=== PATIENT | male | born 1970 | race Caucasian/White ===

== ENCOUNTER → 2018-07-08 09:06 | Outpatient (CLI) | payer OTHER, MEDICAID, SELFPAY | PROVIDERS: Family Provider Family Medicine; PCP Family Medicine; Visit Provider Registered Nurse | DX: B35.1 Tinea unguium (principal) | CPT/HCPCS: 87102 ==

== ENCOUNTER → 2018-08-07 09:44 | Outpatient (CLI) | payer OTHER, MEDICAID, SELFPAY ==
[2018-08-07 10:56] LABS: Alanine Aminotransferase 24 IU/L (21-72); Albumin 4.5 g/dL (3.5-5.0); Albumin Globulin Ratio 1.6 (1.0-2.8); Alkaline Phosphatase 68 U/L (38-126); Aspartate Aminotransferase 25 IU/L (17-59); Bilirubin Total 0.8 mg/dL (0.2-1.3); Blood Urea Nitrogen 15 mg/dL (9-20); Calcium 9.2 mg/dL (8.4-10.2); Carbon Dioxide 30 mmol/L (22-32); Chloride 101 mmol/L (98-107); Cholesterol 174 mg/dL (140-199); Estimated Glomerular Filt Rate > 60.0 mL/min (>60); Globulin 2.8 g/dL (1.7-4.1); Glucose 98 mg/dL (70-100); HDL Cholesterol 36 mg/dL (40-60); HEMOLYSIS 20 (0-50); LDL Cholesterol Calculated 114 mg/dL (<100); Potassium 4.3 mmol/L (3.4-5.1); Sodium 141 mmol/L (137-145); Total Protein 7.3 g/dL (6.3-8.2); Triglycerides 119 mg/dL (35-150)
[2018-08-07 11:27] LABS: Prostate Specific Antigen Scrn 0.951 ng/mL (0.1-4.0)
[2018-08-07 11:28] LABS: Thyroid Stimulating Hormone 1.77 uIU/mL (0.47-4.68)
[2018-08-07 12:13] LABS: Add Manual Diff / Slide Review NO; Basophils Absolute Auto 0 /uL (0-100); Basophils Percent Auto 0.5 % (0-2); Eosinophils Absolute Auto 100 /uL (0-450); Eosinophils Percent Auto 1.7 % (2-4); Hemoglobin 15.2 g/dL (13.5-17.5); Lymphocytes Absolute Auto 1700 /uL (1100-4500); Lymphocytes Percent Auto 28.5 % (25-40); Mean Corpuscular HGB Conc 34.5 % (30-36); Mean Corpuscular Hemoglobin 32.2 PG (26-34); Mean Corpuscular Volume 93.3 fL (80-100); Monocytes Absolute Auto 400 /uL (0-900); Monocytes Percent Auto 7.7 % (3-14); Neutrophils Absolute Auto 3600 /uL (1500-7000); Neutrophils Percent Auto 61.6 % (50-75); Platelet Count 215 X10^3/uL (150-400); Red Blood Cell Count 4.71 X10^6/uL (4.5-5.9); Red Cell Distribution Width 12.5 % (11.6-14.8); White Blood Cell Count 5.8 X10^3/uL (4.5-11.0)
== END ==
PROVIDERS: PCP Family Medicine; Visit Provider Family Medicine
DX: Z00.00 Encounter for general adult medical examination without abnormal findings (principal); Z12.5 Encounter for screening for malignant neoplasm of prostate
CPT/HCPCS: 36415; 80053; 80061; 84443; 85025; G0103

== ENCOUNTER → 2019-07-17 17:08 | Outpatient (CLI) | payer OTHER, MEDICAID, SELFPAY ==
[2019-07-17 17:59] LABS: Alanine Aminotransferase 28 IU/L (<50); Albumin 4.4 g/dL (3.5-5.0); Albumin Globulin Ratio 1.6 (1.0-2.8); Alkaline Phosphatase 63 U/L (38-126); Aspartate Aminotransferase 28 IU/L (17-59); Bilirubin Total 0.6 mg/dL (0.2-1.3); Bilirubin Unconjugated 0.7 mg/dL (0.0-1.1); Globulin 2.8 g/dL (1.7-4.1); HEMOLYSIS < 15 (0-50); Total Protein 7.2 g/dL (6.3-8.2)
== END ==
PROVIDERS: PCP Family Medicine; Referring Provider Family Medicine; Visit Provider Family Medicine
DX: B35.1 Tinea unguium (principal)
CPT/HCPCS: 36415; 80076

== ENCOUNTER → 2022-06-23 08:00 | Outpatient (CLI) | payer OTHER, MEDICAID, SELFPAY ==
[2022-06-23 10:28] LABS: HEMOLYSIS < 15 (0-50)
[2022-06-23 10:47] LABS: Alanine Aminotransferase 26 IU/L (<50); Albumin Globulin Ratio 1.4 (1.0-2.8); Alkaline Phosphatase 72 U/L (38-126); Aspartate Aminotransferase 25 IU/L (17-59); BUN Creatinine Ratio 15.6 (6-22); Bilirubin Total 0.8 mg/dL (0.2-1.3); Blood Urea Nitrogen 14 mg/dL (9-20); Calcium 8.6 mg/dL (8.4-10.2); Carbon Dioxide 33 mmol/L (22-32); Chloride 101 mmol/L (98-107); Cholesterol 171 mg/dL (140-199); Estimated Glomerular Filt Rate > 60 mL/min (>60); Globulin 2.8 g/dL (1.7-4.1); Glucose 95 mg/dL (70-100); HDL Cholesterol 40 mg/dL (40-60); LDL Cholesterol Calculated 102 mg/dL (<100); Potassium 4.1 mmol/L (3.4-5.1); Sodium 138 mmol/L (137-145); Total Protein 6.8 g/dL (6.3-8.2); Triglycerides 145 mg/dL (35-150)
[2022-06-23 11:04] LABS: TSH w/ Reflex to FT4 1.86 uIU/mL (0.47-4.68)
[2022-06-29 19:49] LABS: Prostate Specific Antigen Scrn 0.966 ng/mL (0.1-4.0)
== END ==
PROVIDERS: PCP Family Medicine; Referring Provider Physician Assistant; Visit Provider Physician Assistant
DX: E78.5 Hyperlipidemia, unspecified (principal); Z12.5 Encounter for screening for malignant neoplasm of prostate; Z68.30 Body mass index [BMI] 30.0-30.9, adult
CPT/HCPCS: 36415; 80053; 80061; 84443; G0103

== ENCOUNTER 2022-08-18 10:55 | Day surgery (SDC) | payer OTHER, MEDICAID, SELFPAY ==
[2022-08-18] VITALS (8 sets, daily range): BP systolic 122–150; BP diastolic 79–94; PULSE 56–66; RESP 10–18; TEMP 36.2–37.1; O2SAT 95–99; BMI 28.8
[2022-08-18] MEDS: LACTATED RINGERS 1,000 ML 42 ML IV (11:41)
--- NOTE | 2022-08-18 12:15 | PM.HP.1 ---
History of Present Illness History of Present Illness Date Patient Seen: 08/18/22 Time Patient Seen: 12:15 Chief complaint: Screening Colonoscopy Narrative: presents today for screening colonoscopy. He is colonoscopy before. He does have a friend who is the same age is him was diagnosis stage IV colon cancer and I think this definitely has prompted his desire to go ahead with screening. Not have any family history of colon cancer he does have prostate cancer in the family. No concerning symptoms no bleeding or changes in bowel habits. He has no further questions and would like to proceed [facility] Medical History (Updated 08/18/22 @ 12:16 by Maggie Garcia MD) Anxiety (2008) Chicken pox (~1970) Depression (12/18/13) Depression (2008) Shoulder arthritis Surgical History (Updated 01/08/18 @ 14:38 by Sandy Kinsey) Anesthesia History of third molar tooth extraction (~1987) History of vasectomy (~2006) Family History Sister Age: 51 Diabetes mellitus Father No problems noted. Grandfather No problems noted. Mother No problems noted. Grandfather No problems noted. Grandmother No problems noted. Social History marital status: household members: significant other and family Smoking Status: Former smoker alcohol intake: current substance use type: does not use Meds Home Medications and Allergies Home Medications Medication Instructions Recorded Confirmed Type bupropion HCl 200 mg tablet,12 hr See Rx Instructions .Route 06/05/22 08/18/22 Rx sustained-release .COMPLEX #60 tabs Allergies Allergy/AdvReac Type Severity Reaction Status Date / Time Penicillins Allergy Intermediate Hives Verified 08/18/22 11:42 Exam Vital Signs (past 8 hours): - 08/18/22 11:39 Temperature 98.7 F Pulse Rate 66 Respiratory Rate 18 Blood Pressure 150/89 H Pulse Oximetry 98 Oxygen Delivery Method Room Air Oxygen Delivery Method Room Air Const General: cooperative, healthy appearing and comfortable Nutritional Appearance: well nourished (Good muscle mass) Orientation: alert, awake and oriented x3 HENMT Head: normal to inspection Resp Effort & Inspection: normal respiratory effort and able to speak in complete sentences GI Palpation: soft and No tender Assessment & Plan Assessment and plan (1) Colon cancer screening: Status: Acute Assessment & Plan narrative: Presents today for screening colonoscopy I discussed the risks benefits and alternatives including but not limited to perforation of the colon and an incomplete exam he fully understands these risks and would like to proceed.
--- NOTE | 2022-08-18 18:31 | P.OP.COLON_ITS ---
Operative Date/Time/Diagnoses Date of procedure: 08/18/22 Pre-op diagnosis: Colon cancer screening, average risk Post-op diagnosis: same Procedure & Clinicians Study performed: Colonoscopy Same procedure as scheduled: Yes Surgeon: Maggie Garcia Procedure Notes Procedure in detail: Patient was taken to the endoscopy suite and placed in a left lateral decubitus position. A time-out was performed. With the help of Anesthesiology the patient was placed under conscious sedation and monitored. A digital rectal ex am was performed there were no masses or strictures. There were some small external hemorrhoids seen. The colonoscope was then introduced into the anal canal and advanced through to the cecum. There were a few diverticula photographed in the sigmoid colon. These are incidental and normal findings in people of this age. A photograph of the appendiceal orifice was obtained. The prep overall was good it was a [place] bowel prep score of 2 especially on the right colon though there was some sticky prep that required a lot of irrigation however I think the exam was adequate. The total withdrawal time was 15 minutes. No polyps were seen. Specimen(s): none sent Complications: none Post-procedure Recommendations: Colonoscopy in 10 years Plan for aftercare: So long as no one in the family develops colon cancer and no concerning symptoms present the next time he will need a screening colonoscopy is 10 years from now.
== END 2022-08-18 13:38 | disposition home or self-care (01) ==
PROVIDERS: PCP Family Medicine; Referring Provider Surgery; Visit Provider Surgery
PROC: 0DJD8ZZ Inspection of Lower Intestinal Tract, Via Natural or Artificial Opening Endoscopic (ICD-10-PCS; CPT 45378; principal; 2022-08-18 11:45)
DX: Z12.11 Encounter for screening for malignant neoplasm of colon (principal); K57.30 Diverticulosis of large intestine without perforation or abscess without bleeding; K64.4 Residual hemorrhoidal skin tags
CPT/HCPCS: 45378; J2250; J2704; J3010